=== PATIENT | female | born 1975 | race Caucasian/White ===

== ENCOUNTER 2019-09-16 01:07 | Day surgery (SDC) | payer BC, SELFPAY ==
[2019-09-06 10:07] VITALS: BMI 37.5
--- NOTE | 2019-09-15 10:09 | WPDANESEPP ---
Anes - Eval Pre Procedure Procedure: Operation Date: 09/16/19 07:30 Proposed Procedures p Excision Soft Tissue Mass Left Foot - Adolfo Crain DPM Date/Time: 09/15/19 10:09 Pre Op Diagnosis: Soft tissue mass Left Foot Patient Data Age: 44 Gender: F Height: 1.57 m Weight: 92.99 kg Allergies Allergy/AdvReac Type Severity Reaction Status Date / Time No Known Allergies Allergy Verified 09/06/19 10:12 Home Medications Medication Instructions Recorded Confirmed Type sertraline 100 mg tablet 100 mg PO DAILY 07/29/19 09/06/19 History Patient hx anesthesia problems: none Family hx anesthesia problems: none PMFSH Past Medical History Medical History BENSON (generalized anxiety disorder) Obesity Pre-diabetes Surgical History Surgical History History of delivery History of endometrial ablation Family History Family History Mother No known health problems Father No known health problems Sibling Pancreatic cancer Social History Social History Smoking status: Never smoker Alcohol intake: never Substance use: never Additional occupation/education comments: Work for [employer] Gender identity (if verbalized by the patient): Female Exam Day of Procedure 09/15/19 10:09
[2019-09-16 06:37] VITALS: BP 151/101; PULSE 84; RESP 16; TEMP 36.3; O2SAT 99
[2019-09-16] MEDS: LACTATED RINGERS 1,000 ML 30 ML IV CONT (06:55)
[2019-09-16] MEDS: SCOPOLAMINE 1.5 MG PATCH TRANSDERM (07:15)
--- NOTE | 2019-09-16 07:21 | WPDHPUPDATE1 ---
History and Physical Update Update Date/Time: 09/16/19 07:21 History and Physical has been reviewed, including an updated exam of the patient. There are NO changes in the patient's condition. Risks, benefits, and alternatives have been discussed and questions answered. Patient agrees to proceed with procedure.
--- NOTE | 2019-09-16 07:22 | WPDHPUPDATE1 ---
History and Physical Update Update Date/Time: 09/16/19 07:22 History and Physical has been reviewed, including an updated exam of the patient. There are NO changes in the patient's condition. Risks, benefits, and alternatives have been discussed and questions answered. Patient agrees to proceed with procedure.
--- NOTE | 2019-09-16 07:29 | P.PNAN_ITS ---
Anes - Initial Pre Proc Eval Procedure: Operation Date: 09/16/19 07:30 Proposed Procedures p Excision Soft Tissue Mass Left Foot - Adolfo Crain DPM Date/Time: 09/16/19 07:29 Surgeon: Adolfo Crain DPM Pre Op Diagnosis: Soft tissue mass Left Foot Patient Data Age: 44 Gender: F Height: 1.57 m Weight: 93.8 kg Last Vital Signs Temp 36.3 C L 09/16/19 06:37 Pulse 84 09/16/19 06:37 Resp 16 09/16/19 06:37 BP 151/101 H 09/16/19 06:37 Pulse Ox 99 09/16/19 06:37 Allergies Allergy/AdvReac Type Severity Reaction Status Date / Time No Known Allergies Allergy Verified 09/06/19 10:12 Home Medications Medication Instructions Recorded Confirmed Type sertraline 100 mg tablet 100 mg PO DAILY 07/29/19 09/06/19 History Patient hx anesthesia problems: none Family hx anesthesia problems: none PMFSH Past Medical History Medical History BENSON (generalized anxiety disorder) Obesity Pre-diabetes Surgical History Surgical History History of delivery History of endometrial ablation Family History Family History Mother No known health problems Father No known health problems Sibling Pancreatic cancer Social History Social History Smoking status: Never smoker Alcohol intake: never Substance use: never Additional occupation/education comments: Work for [employer] Gender identity (if verbalized by the patient): Female Anes - Eval Final PreProcedure Day of Procedure 09/16/19 07:29 Patient weight: obese Heart: regular rate and rhythm Lungs: clear to auscultation and normal air movement Airway: Mallampati scale class II Neurological: alert and oriented Last oral intake: >/= 8 hours ASA classification: III Emergent: no Anesthetic plan: proceed Anesthesia type and monitoring: general GIVS Informed Consent: The patient's anesthetic plan and its attendant risks and benefits were discussed with the patient/family/POA. Questions were solicited and answers provided to the satisfaction of the patient/family/POA.
--- NOTE | 2019-09-16 07:30 | SUR.PREOP ---
0710 DR STONE AWARE OF ELEVATED BP, 152/100. NO ORDERS RECEIVED.
[2019-09-16] MEDS: ceFAZolin 2 GM/D5W 50 ML 2 GM/50 ML BAG IVPB (07:47)
[2019-09-16 08:57] VITALS: BP 112/83; PULSE 68; RESP 16; O2SAT 99
--- NOTE | 2019-09-16 08:59 | P.OP_ITS ---
Procedure Note - Detailed Date of procedure: 09/16/19 Pre-op diagnosis: Soft tissue mass Left Foot Surgeon: Surgeon: Adolfo Crain DPM Unishear Operator none Preop diagnosis soft tissue mass, left foot Postoperative diagnosis same Procedure: Excision of soft tissue mass, left foot Anesthesia mac with local Hemostasis ankle tourniquet inflated to 250 mmHg EBL less than 5 cc Materials: 3-0 Monocryl 5-0 Monocryl 4-0 Prolene Injectables 15 cc of a 1:1 mixture of 1% lidocaine plain and 0.25% Marcaine plain Specimens: Soft tissue mass, left foot Complications none Procedure detail: Under mild sedation the patient was brought into the operating room and placed on the operating table in supine position well padded pneumatic ankle tourniquet was then placed about the patient's left ankle following IV sedation local anesthesia was injected about the patient's left foot and a proximal V block fashion utilizing a total of 15 cc of a 1 1 mixture of 1% lidocaine plain and 0.25% Marcaine plain. The foot was then scrubbed prepped and draped in the usual aseptic manner and Esmarch bandage was utilized to exsanguinate the patient's left foot the pneumatic ankle tourniquet was inflated to 250 mm of mercury. Utilizing a sharp sterile 15 blade an incision was made along the dorsal lateral aspect of the patient's left hindfoot. The incision was deepened to the subcutaneous tissues with care being taken to identify retract all vital neural and vascular structures all bleeders were ligated and cauterized as necessary. Dissection was then carried deeper utilizing a curved hemostat as well as a pair of tenotomy scissors the soft tissue mass was well encapsulated and identified. The soft tissue mass was then carefully dissected free of any soft tissue attachments to the surrounding area. It is noted that the soft tissue mass had fibrous adhesions to the sural nerve. The padded throughout the duration of the procedure the sural nerve was noted to be left intact carefully retracted through the duration the procedure the soft tissue mass was carefully dissected free from the sural nerve. The soft tissue mass was noted be left intact throughout the duration of the procedure and was excised in total and passed from field to be sent for specimen. The surgical site was then carefully inspected and was noted to be free of any remaining soft tissue mass as it dissected whole. No sessile structure was noted to be found coming off of the soft tissue mass. The was then flushed with copious amounts of normal sterile saline. Three-0 Monocryl was used to close the deep soft tissue. Please note that the sural nerve was noted be left intact. Five 0 Monocryl was used to reapproximate the subcutaneous tissue and a running subcuticular fashion. Four 0 Prolene was used to reinforce the superficial skin in a simple suture fashion. The incision was then dressed with. Sterile compressive dressing consisting consisting of Xeroform 4x4s Kerlix and Prem wrap. The pneumatic ankle tourniquet was then carefully deflated. Vascular status is was intact noted to the left foot. the patient tolerated anesthesia well. She was transferred to the recovery room with vital signs stable and vascular status intact to the toes of the left foot. Following a period of postoperative monitoring the patient will be discharged home this is the end of the operative report.
[2019-09-16 09:30] VITALS: BP 126/74; PULSE 67; RESP 16
[2019-09-16 10:00] VITALS: BP 141/89; PULSE 58; RESP 16
--- NOTE | 2019-09-16 10:39 | SUR.PHASEII ---
1015 ortho shoe placed on lt foot, per dr garcia
== END 2019-09-16 10:25 | disposition home or self-care (01) ==
PROVIDERS: PCP Family Medicine; Visit Provider Podiatrist
PROC: (CPT 28090; principal; 2019-09-16 07:30)
DX: M67.472 Ganglion, left ankle and foot (principal); F41.1 Generalized anxiety disorder; E66.9 Obesity, unspecified; Z68.37 Body mass index [BMI] 37.0-37.9, adult; R73.03 Prediabetes
CPT/HCPCS: 28090; 88304; A9270; J0690; J1100; J2250; J2405; J2704; J3010; J7120

== ENCOUNTER 2020-06-15 08:53 | Outpatient (CLI) | payer BC, SELFPAY ==
--- NOTE | ~2020-06-15 | XR_ITS ---
EXAMINATION: XR foot LT min 3V DATE: 06/15/2020 09:15 INDICATION: Left foot pain TECHNIQUE: Dorsoplantar, lateral, and oblique views of the left foot were obtained. COMPARISON: 07/29/2019 FINDINGS: Bone alignment is normal. There is no fracture. Mild osteoarthritis is again noted at the f irst metatarsophalangeal joint. A plantar calcaneal enthesophyte is noted. There is persistent but de creased lateral soft tissue swelling of the midfoot. IMPRESSION: 1. Mild osteoarthritis. 2. Persistent but decreased soft tissue swelling lateral to the midfoot. Reviewed, dictated and finalized at location A. ER OPERATOR AUTOMATIC
== END 2020-06-15 08:54 | disposition home or self-care (01) ==
PROVIDERS: PCP Nurse Practitioner Family; Visit Provider Podiatrist
DX: M79.672 Pain in left foot (principal)
CPT/HCPCS: 73630

== ENCOUNTER 2020-06-24 09:12 | Outpatient (CLI) | payer BC, SELFPAY ==
--- NOTE | ~2020-06-24 | MM_ITS ---
EXAMINATION: MM screening [facility] BI w robert HISTORY: Screening mammogram TECHNIQUE: Craniocaudal and mediolateral oblique 3-D tomosynthesis images were obtained and synthetic 2-D images were generated. CAD analysis was submitted and interpreted. COMPARISON: 03/29/2018, 03/22/2017 BREAST PARENCHYMAL COMPOSITION: There are scattered areas of fibroglandular density. FINDINGS: There is no evidence of suspicious mass, calcification, or architectural distortion to sugg est malignancy in either breast. There has been no suspicious interval change. IMPRESSION: 1. No mammographic evidence of malignancy. 2. Recommend routine screening mammography in one year. BI-RADS Category 1: Negative Reviewed, dictated and finalized at location A. AL RESEARCH ASSISTANT
[2020-06-24 13:54] LABS: SARS-CoV-2 Ag Negative (Negative)
== END 2020-06-24 09:13 | disposition home or self-care (01) ==
PROVIDERS: PCP Family Medicine; Visit Provider Obstetrics & Gynecology
DX: Z12.31 Encounter for screening mammogram for malignant neoplasm of breast (principal); Z20.828 Contact with and (suspected) exposure to other viral communicable diseases
CPT/HCPCS: 77063; 77067; 87426

== ENCOUNTER 2020-09-26 13:50 | Outpatient (CLI) | payer BC, SELFPAY ==
--- NOTE | ~2020-09-26 | MR_ITS ---
EXAMINATION: MR shoulder RT wo con DATE: 09/26/2020 14:40 INDICATION: Right shoulder injury TECHNIQUE: Magnetic resonance imaging (MRI) of the right shoulder was performed without intravenous c ontrast. Sequences included axial PD-weighted FS FSE, coronal oblique PD-weighted FS FSE, coronal obl ique T2-weighted FS FSE, sagittal PD-weighted FS FSE, and sagittal T1-weighted SE. COMPARISON: None. FINDINGS: Coracoacromial arch: The acromion undersurface is curved in morphology (type II). The coracoacromial ligament is normal. M ild acromioclavicular osteoarthritis. Rotator cuff: The supraspinatus, infraspinatus and teres minor tendons are normal. The subscapularis tendon is norm al. Normal rotator cuff muscle bulk and signal. Biceps tendon, glenoid labrum and glenohumeral cartilage: Long head of the biceps tendon is normal. Circumferential tear at the base of the glenoid labrum. The re is cystic change along the cephalad rim of the glenoid at the biceps tendon anchor. There appears to be an associated glenoid labral articular disruption (GLAD lesion) with partial-thickness chondral flap tear at the 4-5:00 position of the anteroinferior rim of the glenoid. Glenoid humeral cartilage appears otherwise normal. Fluid: Small glenohumeral joint effusion with extension with proportional small amount of fluid into the suzette g head biceps tendon sheath. No loose osteochondral bodies. Interval increased fluid in the subacromi al/subdeltoid bursa consistent with minimal bursitis. Bones: Normal marrow signal with no edema, fracture or abnormal marrow replacing process. Mild cystic change at the greater tuberosity. IMPRESSION: 1. Circumferential labral tear and GLAD lesion with associated focal chondral flap tear along the rim of the anteroinferior glenoid. Reviewed, dictated and finalized at location A. E DRIVER SALESPERSON IMPRESSION: 1. Circumferential labral tear and GLAD lesion with associated focal chondral f lap tear along the rim of the anteroinferior glenoid.
== END 2020-09-26 13:51 | disposition home or self-care (01) ==
PROVIDERS: PCP Nurse Practitioner Family; Visit Provider Orthopaedic Surgery
DX: M25.511 Pain in right shoulder (principal); S43.431A Superior glenoid labrum lesion of right shoulder, initial encounter
CPT/HCPCS: 73221

== ENCOUNTER 2020-10-27 08:45 | Outpatient (RCR) | payer BC, OTHER, SELFPAY ==
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
--- NOTE | 2020-12-03 07:59 | PTOPEVAL ---
Thank you for referring Missy Rios to [facility].? The patient is scheduled to be seen for therapy? ____x/week for ___ weeks. Please review, sign, date and return this plan of care [place]. I agree with and certify that the following plan of care is medically necessary. Referring Physician Date Admitting Provider: Attending Provider: ADRIAN ATKINSON Referring Provider: MalgorzataPT Outpatient Evaluation Start: 10/27/20 06:53 Freq: Status: Active Protocol: Document 12/03/20 06:56 ACR (Rec: 12/03/20 07:58 ACR [id number]) Therapy Assessment Status Assessment Status Assessment Status Progress Outpatient Past Medical History Neurological History Hx Other Neurological Disorders Yes: NEROPATHY L FOOT Cardiovascular History Hx Cardiac Disorders No Significant History Respiratory History Hx Respiratory Disorders No Significant History Gastrointestinal History Hx Gastrointestinal Disorders No Significant History Genitourinary History Hx Genitourinary Disorders No Significant History Musculoskeletal History Hx Arthritis Yes Hx Other Musculoskeletal Disorders Yes: SOFT TISSUE MASS LEFT FOOT Hematological History Hx Hematological Disorders No Significant History Endocrine History Hx Endocrine Disorders No Significant History HEENT History Hx HEENT Disorders No Significant History Integumentary History Hx Skin Disorders No Significant History Reproductive History Hx Section Yes: X2 Hx Other Reproductive Disorders Yes: UTERINE ABLATION Psychosocial History Hx Psychiatric Disorders No Significant History Pain History History of Any Previous or Ongoing No Significant History Instance of Pain Anesthesia History Hx Post-Op Nausea/Vomiting Yes Evaluation Information Problem Diagnosis R SLAP tear and bicep tenodesis Onset 10/12/20 Subjective Information The patient states that since Query Text:As Reported By Patient/ beginning therapy she is able Family to reach overhead easier, perform ADL's with better ease , driving and adjusting mirrors is much easier as well . She states she still is weak and has pain if she uses the arm too much. Pain Assessment Timing of Pain Assessment Timing of Pain Assessment Assessment Pain Scale Pain Scale Used Numeric (1 - 10) Self Report Pain Assessment Right Shoulder(s) Reported Pain Level 4 Greatest Pain Intensity 5 Pain Score Pain Score 4: Self Report Interventions Used
== END 2021-01-19 11:02 | disposition home or self-care (01) ==
LOC: CHSPT 08:45
PROVIDERS: PCP Nurse Practitioner Family
DX: S43.431A Superior glenoid labrum lesion of right shoulder, initial encounter (principal)
CPT/HCPCS: 97014; 97110; 97161; 97530; G0283

== ENCOUNTER 2021-07-21 12:54 | Outpatient (CLI) | payer OTHER, SELFPAY ==
--- NOTE | 2021-07-21 13:00 | ECG_ITS ---
Measurements Intervals [place] Rate: 72 P: 53 OK: 160 QRS: 18 QRSD: 100 T: 40 QT: 422 QTc: 462 Interpretive Statements SINUS RHYTHM BASELINE ARTIFACT- I, II, III, AVR, AVL, AVF NORMAL ECG Electronically Signed On 07-21-2021 13:14:27 CHEMIST INSTRUMENTATION by Carlos Arroyo D.O.
[2021-07-21 13:28] LABS: Basophils Absolute Auto 0.07 K/mm3 (0.00-0.10); Basophils Percent Auto 0.9 % (0.0-1.0); Eosinophils Absolute Auto 0.16 K/mm3 (0.02-0.50); Hematocrit 41.7 % (35.0-49.0); Immature Granulocyte Absolute 0.02 K/mm3 (0.00-0.00); Immature Granulocyte Percent A 0.2 % (0.0-0.0); Lymphocytes Absolute Auto 2.75 K/mm3 (1.10-4.50); Lymphocytes Percent Auto 34.3 % (18.0-42.0); Mean Corpuscular HGB Conc 33.6 g/dL (32.0-36.0); Mean Corpuscular Volume 89.3 fL (78.0-102.0); Mean Platelet Volume 9.7 fl (9.2-11.8); Monocytes Absolute Auto 0.53 K/mm3 (0.10-0.90); Monocytes Percent Auto 6.6 % (2.0-11.0); Neutrophils Absolute Auto 4.5 K/mm3 (1.7-7.2); Platelet Count Result 392 K/mm3 (150-420); Red Blood Count 4.67 M/mm3 (4.20-5.40); Red Cell Distribution Width 12.4 % (11.6-14.4)
[2021-07-21 13:44] LABS: Add Urine Microscopic? NO; Appearance Urine Clear (Clear); Bilirubin Urine Negative (Negative); Blood Urine Negative (Negative); Color Urine Light Yellow (Yellow); Glucose Urine UA Negative (Negative); Ketones Urine Negative (Negative); Leukocyte Esterase Ur Negative (Negative); Nitrate Urine Negative (Negative); Protein Urine Negative (Negative); Urobilinogen Urine 0.2 mg/dL (0.2-1.0)
[2021-07-21 13:55] LABS: Alanine Aminotransferase 31 U/L (14-59); Alkaline Phosphatase 81 U/L (46-116); Anion Gap 13 mmol/L (8-16); Aspartate Amino Transferase 12 U/L (15-37); Bilirubin,Total 0.5 mg/dL (0.00-1.00); Blood Urea Nitrogen 13 mg/dL (7-18); Calcium 8.9 mg/dL (8.5-10.1); Carbon Dioxide 24 mmol/L (21-32); Chloride 102 mmol/L (98-108); Estimated Glomerular Filt Rate > 60; Glucose 105 mg/dL (70-99); Magnesium 2.2 mg/dL (1.8-2.4); Osmolality Calculated 288 mOsm/kg (285-295); Sodium 139 mmol/L (136-145); Thyroid Stimulating Hormone 1.83 uIU/mL (0.36-3.74); Total Protein 7.3 g/dL (6.4-8.2)
== END 2021-07-21 12:55 | disposition home or self-care (01) ==
PROVIDERS: PCP Nurse Practitioner Family; Visit Provider Nurse Practitioner Family
DX: Z01.818 Encounter for other preprocedural examination (principal); I10 Essential (primary) hypertension; R73.03 Prediabetes; F41.1 Generalized anxiety disorder; E66.9 Obesity, unspecified; E83.42 Hypomagnesemia
CPT/HCPCS: 36415; 80053; 81003; 83735; 84443; 85025; 93005

== ENCOUNTER 2022-01-18 09:07 | Outpatient (CLI) | payer OTHER, SELFPAY ==
--- NOTE | ~2022-01-18 | XR_ITS ---
XR elbow LT 2V DATE: 01/18/2022 09:31 INDICATION: Left elbow pain following a fall months ago TECHNIQUE: AP and lateral views COMPARISON: None FINDINGS: No fracture or dislocation or joint effusion. No periosteal reaction or bone destruction. IMPRESSION: Negative Reviewed, dictated and finalized at location A. IMPRESSION: Negative
== END 2022-01-18 09:08 | disposition home or self-care (01) ==
LOC: CHSIMG 09:09
PROVIDERS: PCP Nurse Practitioner Family; Visit Provider Nurse Practitioner Family
DX: M25.522 Pain in left elbow (principal)
CPT/HCPCS: 73070

== ENCOUNTER 2022-03-10 12:45 | Outpatient (CLI) | payer OTHER, SELFPAY ==
[2022-03-10 13:02] LABS: Add Urine Microscopic? YES; Appearance Urine Clear (Clear); Bilirubin Urine Negative (Negative); Blood Urine 3+ (Negative); Color Urine Light Yellow (Yellow); Glucose Urine UA Negative (Negative); Ketones Urine Negative (Negative); Leukocyte Esterase Ur 3+ LEU/UL (Negative); Nitrate Urine Negative (Negative); Protein Urine Negative (Negative); Specific Grav Ur <= 1.005 (1.010-1.020); Urobilinogen Urine 0.2 mg/dL (0.2-1.0)
[2022-03-10 13:14] LABS: Bacteria Urine 1+ /hpf; Squamous Epithelial Cell Urine Few /hpf (Few); WBC Urine 51-75 /hpf (0-3)
== END 2022-03-10 12:46 | disposition home or self-care (01) ==
LOC: CHSLAB 12:47
PROVIDERS: PCP Family Medicine; Visit Provider Family Medicine
DX: R30.0 Dysuria (principal)
CPT/HCPCS: 81001; 87077; 87086; 87088; 87186

== ENCOUNTER 2022-06-03 13:14 | Outpatient (CLI) | payer OTHER, SELFPAY ==
--- NOTE | ~2022-06-03 | MM_ITS ---
EXAMINATION: MM screening [facility] BI w robert HISTORY: Screening TECHNIQUE: Craniocaudal and mediolateral oblique 3-D tomosynthesis images were obtained and synthetic 2-D images were generated. CAD analysis was submitted and interpreted. COMPARISON: Comparison to multiple prior studies sequentially, with oldest reviewed study dated 04/2017. BREAST PARENCHYMAL COMPOSITION: Breast composed of scattered areas of fibroglandular density FINDINGS: There is no evidence of suspicious mass, calcification, or architectural distortion to sugg est malignancy in either breast. There has been no suspicious interval change. IMPRESSION: 1. No mammographic evidence of malignancy. 2. Recommend routine screening mammography in one year. BI-RADS Category 2: Benign finding(s). Reviewed, dictated and finalized at location A.
== END 2022-06-03 13:15 | disposition home or self-care (01) ==
LOC: CHSIMG 13:15
PROVIDERS: PCP Nurse Practitioner Family; Visit Provider Obstetrics & Gynecology
DX: Z12.31 Encounter for screening mammogram for malignant neoplasm of breast (principal)
CPT/HCPCS: 77063; 77067

== ENCOUNTER 2023-09-21 07:16 | Emergency (ER) | payer OTHER, SELFPAY ==
--- NOTE | ~2023-09-21 | CT_ITS ---
EXAMINATION: CTA BRAIN/CAROTID DATE: 09/21/2023 08:53 INDICATION: Slurred speech with confusion, headaches and blurry vision TECHNIQUE: Computed tomographic angiography (CTA) of the head and neck was performed with 100 mL Omni paque-350 intravenous contrast. Multiplanar reconstructions and maximum intensity projection 3D-recon structions of the carotid arteries and of the intracranial arteries were created by the technologist on a separate workstation. Precontrast CT of the head was also obtained. Automated exposure control and iterative reconstruction technique were employed.The dose-length product was 1546.89 mGy-cm. COMPARISON: Head CT dated 10/26/2015 and brain MR dated 12/27 FINDINGS: Carotid arteries: Visualized upper lungs are clear. 2.2 cm heterogeneously enhancing right thyroid nodule. Superior med iastinum and cervical soft tissues are otherwise unremarkable. Visualized portion of the aortic arch demonstrates normal caliber with no evident atherosclerotic plaque or dissection. There is normal wit h atherosclerotic plaque with 0% stenosis of the right and left carotid bulbs relative to normal dist al artery lumen diameter (NASCET criteria). Bilateral vertebral arteries are codominant with no evide nt atherosclerotic plaque or stenosis. Head: No acute intracranial hemorrhage, acute infarction or abnormal extra axial fluid collection. Ventricl es are normal and symmetric. No mass/mass effect. The orbits, paranasal sinuses and mastoid air cells are normal. Intracranial arteries There is no hemodynamically significant stenosis in the vertebral, basilar and internal carotid arter ies. Vertebral arteries are codominant. There are no aneurysms identified. Both A1 and P1 segments a re patent. There are also patent intercommunicating and right posterior communicating arteries. Cereb ral arterial arborization appears symmetric. No abnormally enhancing brain lesions. IMPRESSION: 1. No evident atherosclerotic plaque with 0% stenosis of the right and left carotid bulbs relative to normal distal artery lumen diameter (NASCET criteria). 2. Normal brain with normal cerebral CT angiogram. Reviewed, dictated and finalized at location A. NE PILOT IMPRESSION: 1. No evident atherosclerotic plaque with 0% stenosis of the right and left car otid bulbs relative to normal distal artery lumen diameter (NASCET criteria). 2. Normal brain with normal cerebral CT angiogram.
[2023-09-21 07:16] VITALS: BP 153/97; PULSE 91; RESP 20; TEMP 36.2; O2SAT 99
--- NOTE | 2023-09-21 07:34 | ECG_ITS ---
Measurements Intervals [place] Rate: 74 P: 66 CT: 166 QRS: 59 QRSD: 98 T: 72 QT: 375 QTc: 419 Interpretive Statements SINUS RHYTHM COMPARED TO ECG 07/21/2021 13:13:13 NO SIGNIFICANT CHANGES Electronically Signed On 09-21-2023 11:07:48 RECORDIST by Jacquelyn Molina M.D.
[2023-09-21 07:49] LABS: Basophils Absolute Auto 0.05 K/mm3 (0.00-0.10); Basophils Percent Auto 0.9 % (0.0-1.0); Eosinophils Percent Auto 1.7 % (1.0-6.0); Hematocrit 41.4 % (35.0-49.0); Hemoglobin 13.8 g/dL (12.0-15.0); Immature Granulocyte Absolute 0.02 K/mm3 (0.00-0.00); Immature Granulocyte Percent A 0.3 % (0.0-0.0); Lymphocytes Absolute Auto 2.36 K/mm3 (1.10-4.50); Lymphocytes Percent Auto 40.8 % (18.0-42.0); Mean Corpuscular HGB Conc 33.3 g/dL (32.0-36.0); Mean Corpuscular Hemoglobin 30.7 pg (27.0-31.0); Mean Platelet Volume 9.6 fl (9.2-11.8); Monocytes Absolute Auto 0.43 K/mm3 (0.10-0.90); Monocytes Percent Auto 7.4 % (2.0-11.0); Neutrophils Absolute Auto 2.8 K/mm3 (1.7-7.2); Neutrophils Percent Auto 48.9 % (50.0-70.0); Platelet Count Result 312 K/mm3 (150-420); Red Cell Distribution Width 11.8 % (11.6-14.4); White Blood Count 5.8 K/mm3 (4.8-10.8)
[2023-09-21 08:03] LABS: INR 0.9; Partial Thromboplastin Time 29.1 SEC (23.90-30.70); Prothrombin Time 10.4 Seconds (9.50-12.10)
[2023-09-21 08:12] LABS: Alanine Aminotransferase 26 U/L (14-59); Albumin Level 4.1 g/dL (3.4-5.0); Alkaline Phosphatase 47 U/L (46-116); Anion Gap 12 mmol/L (8-16); Aspartate Amino Transferase 12 U/L (15-37); Bilirubin,Total 1.5 mg/dL (0.00-1.00); Blood Urea Nitrogen 15 mg/dL (7-18); Calcium 8.7 mg/dL (8.5-10.1); Carbon Dioxide 24 mmol/L (21-32); Chloride 103 mmol/L (98-108); Estimated CRCL calculation 97 ml/min; Estimated Glomerular Filt Rate > 60; Glucose 90 mg/dL (70-99); Osmolality Calculated 288 mOsm/kg (285-295); Potassium 3.7 mmol/L (3.5-5.1); Sodium 139 mmol/L (136-145); Thyroid Stimulating Hormone 1.89 uIU/mL (0.36-3.74); Total Protein 7.4 g/dL (6.4-8.2)
[2023-09-21] MEDS: SODIUM CHLORIDE 0.9% IV 500 ML 50 ML IV CONT (08:36)
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
[2023-09-21 10:02] VITALS: BP 115/74; PULSE 69; RESP 18; TEMP 36.2; O2SAT 96
== END 2023-09-21 10:09 | disposition home or self-care (01) ==
PROVIDERS: Emergency Provider Emergency Medicine; PCP Family Medicine
DX: R51.9 Headache, unspecified (principal)
CPT/HCPCS: 36415; 70496; 70498; 80053; 84443; 85025; 85610; 85730; 93005; 96360; 99284; J7040; Q9967

== ENCOUNTER 2024-04-30 13:51 | Outpatient (CLI) | payer OTHER, SELFPAY ==
[2024-04-30 14:15] LABS: Basophils Absolute Auto 0.06 K/mm3 (0.00-0.10); Eosinophils Absolute Auto 0.11 K/mm3 (0.02-0.50); Eosinophils Percent Auto 1.8 % (1.0-6.0); Hematocrit 39.9 % (35.0-49.0); Hemoglobin 13.7 g/dL (12.0-15.0); Immature Granulocyte Absolute 0.02 K/mm3 (0.00-0.00); Immature Granulocyte Percent A 0.3 % (0.0-0.0); Lymphocytes Percent Auto 40.3 % (18.0-42.0); Mean Corpuscular HGB Conc 34.3 g/dL (32-36); Mean Corpuscular Hemoglobin 31.4 pg (27.0-31.0); Mean Corpuscular Volume 91.3 fL (78.0-102.0); Mean Platelet Volume 9.8 fl (9.2-11.8); Monocytes Absolute Auto 0.41 K/mm3 (0.10-0.90); Monocytes Percent Auto 6.6 % (2.0-11.0); Neutrophils Absolute Auto 3.11 K/mm3 (1.70-7.20); Platelet Count Result 330 K/mm3 (150-420); Red Blood Count 4.37 M/mm3 (4.20-5.40); Red Cell Distribution Width 11.7 % (11.6-14.4); White Blood Count 6.2 K/mm3 (4.8-10.8)
[2024-04-30 14:48] LABS: Hemoglobin A1C 5.3 % (<5.7)
[2024-04-30 15:02] LABS: Alanine Aminotransferase 25 U/L (14-59); Albumin Level 4.1 g/dL (3.4-5.0); Alkaline Phosphatase 54 U/L (46-116); Anion Gap 10 mmol/L (4-12); Aspartate Amino Transferase 14 U/L (15-37); Bilirubin,Total 1.3 mg/dL (0.00-1.00); Blood Urea Nitrogen 10 mg/dL (7-18); Calcium 8.3 mg/dL (8.5-10.1); Carbon Dioxide 26 mmol/L (21-32); Chloride 103 mmol/L (98-108); Estimated Glomerular Filt Rate > 60; Glucose 92 mg/dL (70-99); Osmolality Calculated 287 mOsm/kg (285-295); Potassium 3.9 mmol/L (3.5-5.1); Sodium 139 mmol/L (136-145); Total Protein 6.9 g/dL (6.4-8.2)
[2024-05-05 13:43] LABS: Estrogen 144 pg/mL
== END 2024-04-30 13:52 | disposition home or self-care (01) ==
LOC: CHSLAB 13:52
PROVIDERS: PCP Family Medicine; Visit Provider Family Medicine
DX: G89.29 Other chronic pain (principal); R51.9 Headache, unspecified; E11.9 Type 2 diabetes mellitus without complications; F41.1 Generalized anxiety disorder
CPT/HCPCS: 36415; 80053; 82672; 83001; 83002; 83036; 85025

== ENCOUNTER 2024-05-09 07:26 | Outpatient (CLI) | payer OTHER, SELFPAY ==
--- NOTE | ~2024-05-09 | MR_ITS ---
EXAMINATION: MR brain IAC wo con DATE: 05/09/2024 08:56 INDICATION: Headache with 3 episodes of visual change and confusion TECHNIQUE: Magnetic resonance imaging (MRI) of the brain and brainstem was performed without intraven ous contrast. Sequences included sagittal and axial T1-weighted SE, axial diffusion-weighted FS SE, a xial T2*-weighted GRE, axial T2-weighted FLAIR, and axial T2-weighted FSE. Postcontrast axial and cor onal T1-weighted SE was obtained. Apparent diffusion coefficient (ADC) maps were created. COMPARISON: Head CT and CT angiogram dated 09/21/2023 FINDINGS: There are no areas of restricted diffusion to suggest acute infarction. No intracranial hemorrhage or abnormal intracranial mass lesion. There are no intraparenchymal signal abnormalities seen on the ot her pulse sequences. The ventricles are symmetric and normal in size. There are no abnormal extra-axi al fluid collections. Flow voids are seen in the cerebral arteries on the T2-weighted sequences consi stent with their expected patency. Mild mucosal thickening in the bilateral ethmoid and sphenoid sinu ses. Visualized orbits and soft tissues are unremarkable. IMPRESSION: 1. Normal brain. Reviewed, dictated and finalized at location A. IMPRESSION: 1. Normal brain.
== END 2024-05-09 07:27 | disposition home or self-care (01) ==
PROVIDERS: PCP Family Medicine; Visit Provider Family Medicine
DX: R51.9 Headache, unspecified (principal)
CPT/HCPCS: 70551

== ENCOUNTER 2024-06-20 09:32 | Outpatient (CLI) | payer OTHER, SELFPAY ==
--- NOTE | 2024-06-20 09:46 | ECHO_ITS ---
Patient Info Name: Missy Rios Age: 49 years : 1975 Gender: Female Ht: 63 in Wt: 158 lbs BSA: 1.81 m2 HR: 70 bpm BP: 138 / 100 mmHg Heart Rhythm: Sinus Rhythm Technical Quality: Good Exam Date: 06/20/2024 9:58 AM Exam Location: Echo Lab Patient Status: Outpatient Admit Date: 06/20/2024 Staff Ordering Physician: Char Chaudhary MD Animal Biologist: Kevin Snowden RDCS Attending Provider: Char Chaudhary MD Referring Physician: Jet TONY; Exam Type: CA echo doppler w bubble study Study Info Indications - transient cerebral ischemic attack Complete two-dimensional, color flow and Doppler transthoracic echocardiogram is performed with agitated saline. Summary 1. Left ventricular chamber dimension is normal. 2. Left ventricular systolic function is normal, estimated at 60-65%. 3. The left ventricular diastolic function is grade I diastolic dysfunction. 4. E/e' 8 is minimally elevated. 5. No pulmonary hypertension, estimated pulmonary arterial systolic pressure is 16 mmHg. Left Ventricle E/e' 8 is minimally elevated. Left ventricular chamber dimension is normal. Left ventricular systolic function is normal, estimated at 60-65%. The left ventricular diastolic function is grade I diastolic dysfunction. Right Ventricle Right ventricular systolic function is normal and with normal TAPSE 2.4 cm. Right ventricular chamber dimension is normal. Left Atria Left atrial chamber dimension is normal. Right Atria Right atrial chamber dimension is normal. Atrial Septum Agitated saline injection with and without valsalva maneuver opacified right side cardiac chambers without shunt to left side cardiac chambers. Intact interatrial septum visualized by 2D and agitated saline imaging. Aortic Valve The aortic valve is trileaflet. There is no aortic valve stenosis. There is no aortic valve regurgitation. Pulmonic Valve There is no pulmonic regurgitation. Mitral Valve There is no mitral valve stenosis. There is no mitral valve regurgitation. Tricuspid Valve There is no tricuspid valve regurgitation. No pulmonary hypertension, estimated pulmonary arterial systolic pressure is 16 mmHg. Pericardium/Pleural There is no pericardial effusion. Inferior Vena Cava Normal inferior vena cava with >50% collapse upon inspiration consistent with normal right atrial pressure, 5 mmHg. Aorta The aortic root size at the sinus of Valsalva is normal. Left Ventricular Outflow Tract Name Value Normal LVOT 2D LVOT Diameter 1.8 cm LVOT Doppler LVOT Peak Gradient 2 mmHg LVOT Mean Gradient 1 mmHg LVOT VTI 16 cm LVOT VTI/AV VTI Ratio 0.8 LVOT Stroke Volume 42 ml LVOT CO 3.1 l/min LVOT CI 1.7 l/min/m2 Pulmonic Valve Name Value Normal PV Doppler PV Peak Gradient 2 mmHg Mitral Valve Name Value Normal MV Doppler MV Decel Duval 312 cm/s2 MV PHT 49 ms MV Area (PHT) 4.5 cm2 4.0-5.0 MV Diastolic Function MV E Peak Velocity 53 cm/s MV A Peak Velocity 63 cm/s MV E/A 0.8 MV Decel Time 170 ms MV Annular TDI MV E/e' (Septal) 9.7 <=8.0 MV E/e' (Lateral) 8.3 <=8.0 MV E/e' (Average) 9.0 Tricuspid Valve Name Value Normal TV Regurgitation Doppler TR Peak Velocity 165 cm/s TR Peak Gradient 11 mmHg Estimated PAP/RSVP RA Pressure 5 mmHg <=5 PA Systolic Pressure 16 mmHg <36 RV Systolic Pressure 16 mmHg <36 Aortic Valve Name Value Normal AV Doppler AV Peak Velocity 96 cm/s AV Peak Gradient 4 mmHg AV Mean Gradient 2 mmHg AV VTI 21 cm AV Area (Cont Eq VTI) 2.0 cm2 >=3.0 AV Area (Cont Eq Abhishek) 1.9 cm2 AV Regurgitation 2D LVOT Area 2.6 cm2 Ventricles Name Value Normal LV Dimensions 2D/MM IVS Diastolic Thickness (2D) 0.9 cm 0.6-1.0 LVID Diastole (2D) 4.7 cm 3.8-5.2 LVIW Diastolic Thickness (2D) 0.9 cm 0.6-0.9 LVID Systole (2D) 2.9 cm 2.2-3.5 LVOT Diameter 1.8 cm LV Mass (2D Cubed) 142.11 g 67.00-162.00 LV Mass Index (2D Cubed) 79 g/m2 43-95 Relative Wall Thickness (2D) 0.39 LV Fractional Shortening/Ejection Fraction 2D/MM LV Fractional Shortening (2D) 38 % 27-45 LV EF (2D Teicholz) 68 % 54-74 LV Diastolic Volume (4C MOD) 74 ml LV EF (4C MOD) 65 % LV Diastolic Volume (2C MOD) 62 ml LV EF (2C MOD) 53 % LV Diastolic Volume (BP MOD) 67 ml 46-106 LV Diastolic Volume Index (BP MOD) 37 ml/m2 29-61 LV Systolic Volume (BP MOD) 29 ml 14-42 LV Systolic Volume Index (BP MOD) 16 ml/m2 8-24 LV EF (BP MOD) 57 % 54-74 LV Diastolic Length (4C) 7.7 cm LV Systolic Length (4C) 5.7 cm LV Stroke Volume (4C MOD) 48 ml Atria Name Value Normal LA Dimensions LA Volume (4C A-L) 28 ml LA Volume (BP A-L) 32 ml RA Dimensions RA Area (4C) 10.9 cm2 <=18.0 Report Signatures
== END 2024-06-20 09:33 | disposition home or self-care (01) ==
PROVIDERS: PCP Family Medicine; Visit Provider Psychiatry & Neurology Neurology
DX: G45.9 Transient cerebral ischemic attack, unspecified (principal); G43.909 Migraine, unspecified, not intractable, without status migrainosus
CPT/HCPCS: 93306; 96375

== ENCOUNTER 2024-06-28 08:30 | Outpatient (CLI) | payer OTHER, SELFPAY ==
--- NOTE | 2024-06-30 15:18 | WPDNEUROLOGY ---
Neurology EEG Report General Information Date of Study: 06/28/24 TEST eeg DIAGNOSIS TIA and migraine CONDITION OF RECORDING awake and drowsy EEG NUMBER [id number] CLINICAL HISTORY patient reports she is having episodes of confusion and dysphagia. EEG DESCRIPTION Basic resting occipital frequency consists of low voltage 8 to 9 hertz per 2nd alpha admixed with low-voltage 15 to 18 hertz per 2nd beta. Alpha activity symmetrical blocked with eyes opening. Good anterior-posterior gradient is noted. Low-voltage beta activity seen admixed with waxing and waning alpha and theta activity during drowsiness. Symmetrical sleep activity is noted during sleep admixed with multiple movement artifacts particularly anteriorly. Photic stimulation produced normal drive. Hyperventilation not done. Non paroxysmal . Nonfocal. Nonlateralizing. IMPRESSION Normal record.
== END 2024-06-28 08:31 | disposition home or self-care (01) ==
PROVIDERS: PCP Family Medicine; Visit Provider Psychiatry & Neurology Neurology
DX: G43.909 Migraine, unspecified, not intractable, without status migrainosus (principal); G45.9 Transient cerebral ischemic attack, unspecified; G89.29 Other chronic pain; Z87.828 Personal history of other (healed) physical injury and trauma
CPT/HCPCS: 95816